=== PATIENT | female | born 1960 | race Caucasian/White ===

== ENCOUNTER 2020-10-19 13:10 | Inpatient (IN) | payer MEDICAID ==
[~2020-10-19] VITALS: Ht 157.5 cm; Wt 59.9 kg
[2020-10-19 15:28] LABS: BASOPHILS % (AUTO) 0.4 % (0-1); EOSINOPHILS # (AUTO) 0.1 X10'3 (0-0.9); EOSINOPHILS % (AUTO) 3.6 % (0-6); LYMPHOCYTES # (AUTO) 0.5 X10'3 (1.1-4.8); LYMPHOCYTES % (AUTO) 13.5 % (21-51); MEAN CORPUSCULAR HEMOGLOBIN 28.8 PG (27.0-31.0); MEAN CORPUSCULAR HGB CONC 33.5 g/dL (33.0-36.5); MEAN PLATELET VOLUME 8.1 FL (7.4-10.4); MONOCYTES # (AUTO) 0.6 X10'3 (0-0.9); MONOCYTES % (AUTO) 17.1 % (2-12); NEUTROPHILS # (AUTO) 2.3 X10'3 (1.8-7.7); NEUTROPHILS % (AUTO) 65.4 % (42-75); PRE OP HEMATOCRIT 36.7 % (35.0-45.0); PRE OP HEMOGLOBIN 12.3 g/dL (12.0-16.0); PRE OP PLATELET COUNT 158 X10'3 (140-440); RED BLOOD COUNT 4.27 X10'6 (4.20-5.60); RED CELL DISTRIBUTION WIDTH 17.2 % (11.5-14.5)
[2020-10-19 15:36] LABS: PRE OP INR 1.1 INR; PRE OP PROTIME 10.9 SECONDS (9.0-12.0)
[2020-10-19 15:37] LABS: ALBUMIN 3.3 G/DL (3.4-5.0); ALBUMIN/GLOBULIN RATIO 0.7 (1.1-1.5); ALKALINE PHOSPHATASE 166 IU/L (46-116); BLOOD UREA NITROGEN 9 MG/DL (7-18); CALCIUM 8.4 MG/DL (8.5-10.1); CHLORIDE 105 MMOL/L (99-107); PRE OP ALT 24 U/L (30-65); PRE OP ANION GAP 8 (8-16); PRE OP AST 29 U/L (10-37); PRE OP BILIRUB, TOTAL 0.4 MG/DL (0.0-1.0); PRE OP GLUCOSE 121 MG/DL (70-104); PRE OP SODIUM 142 MMOL/L (135-145); TOTAL CARBON DIOXIDE 29.4 MMOL/L (24-32); TOTAL PROTEIN 8.1 G/DL (6.4-8.2); eGFR > 90 ML/MIN
[2020-10-19 15:38] LABS: PRE OP POTASSIUM 3.3 MMOL/L (3.4-5.1)
[2020-10-19 15:54] LABS: ANISOCYTOSIS 1+; PLATELET ESTIMATE NORMAL; TOTAL CELLS COUNTED 100
[2020-10-19] MEDS ORDERED: OMEP-50 PO (18:24)
[2020-10-27] VITALS (17 sets, daily range): BP systolic 109–144; BP diastolic 45–75
[2020-10-27] MEDS ORDERED: ringers solution, lacted 1,000 ML IV SCH ×2 (05:00→10:30)
[2020-10-27] MEDS ORDERED: metroNIDAZOLE-Flagyl 500mg/NS 100ML IVPB IV ONE (05:30)
[2020-10-27] MEDS ORDERED: ceFOXitin 2GM-NS 100mL ADDvant 100 ML IV ONE (05:30)
[2020-10-27] MEDS ORDERED: famotidine 20mg tablet PO ONE (05:30)
[2020-10-27] MEDS ORDERED: fentaNYL /PF 50mcg/ml 5ml ampule ONE (09:49)
[2020-10-27] MEDS ORDERED: midazolam 1 mg/ML 2ml injection ONE (09:49)
[2020-10-27] MEDS ORDERED: LIDOcaine 2% (20mg/ml) 5ml vial ONE (09:51)
[2020-10-27] MEDS ORDERED: rocuronium 10mg/ml inj IV ONE (09:51)
[2020-10-27] MEDS ORDERED: propofol inj 20 ML IV ONE (09:51)
[2020-10-27] MEDS ORDERED: LIDOcaine 1% W/epiNEPHrine 1:100,000 20ml vial ONE (09:57)
[2020-10-27] MEDS ORDERED: BUPIVAcaine/PF 2.5 mg/ml (0.25%) 30ml vial ONE (09:57)
[2020-10-27 10:13] LABS: ASPARTATE AMINO TRANSFERASE 32 U/L (10-37); BILIRUBIN,TOTAL 0.5 MG/DL (0.1-1.0); BLOOD UREA NITROGEN 9 MG/DL (7-18); BUN/CREATININE RATIO 13.8 (6.6-38.0); CHLORIDE 103 MMOL/L (99-107); CREATININE 0.65 MG/DL (0.40-0.90); GLUCOSE 201 MG/DL (70-104); POTASSIUM 3.4 MMOL/L (3.5-5.1); SODIUM 140 MMOL/L (135-145); eGFR > 90 ML/MIN
[2020-10-27 10:15] LABS: PARTIAL THROMBOPLASTIN TIME 26 SECONDS (22-32)
[2020-10-27 10:16] LABS: ALANINE AMINOTRANSFERASE 28 U/L (12-78); ALBUMIN 3.2 G/DL (3.4-5.0); ALBUMIN/GLOBULIN RATIO 0.7 (1.1-1.5); ALKALINE PHOSPHATASE 109 IU/L (46-116); ANION GAP 10 (8-16); CALCIUM 8.2 MG/DL (8.5-10.1); TOTAL CARBON DIOXIDE 27.2 MMOL/L (24-32); TOTAL PROTEIN 7.6 G/DL (6.4-8.2)
[2020-10-27 10:20] LABS: BASOPHILS % (AUTO) 0.3 % (0-1); EOSINOPHILS # (AUTO) 0.1 X10'3 (0-0.9); EOSINOPHILS % (AUTO) 3.9 % (0-6); HEMATOCRIT 32.2 % (35.0-45.0); HEMOGLOBIN 10.7 g/dl (12.0-16.0); LYMPHOCYTES # (AUTO) 0.4 X10'3 (1.1-4.8); LYMPHOCYTES % (AUTO) 13.6 % (21-51); MEAN CORPUSCULAR HEMOGLOBIN 28.2 PG (27.0-31.0); MEAN CORPUSCULAR HGB CONC 33.2 g/dL (33.0-36.5); MEAN CORPUSCULAR VOLUME 84.7 FL (78-98); MEAN PLATELET VOLUME 8.1 FL (7.4-10.4); MONOCYTES # (AUTO) 0.5 X10'3 (0-0.9); NEUTROPHILS # (AUTO) 1.7 X10'3 (1.8-7.7); NEUTROPHILS % (AUTO) 63.2 % (42-75); PLATELET COUNT 141 X10'3 (140-440); RED CELL DISTRIBUTION WIDTH 17.2 % (11.5-14.5); WHITE BLOOD COUNT 2.7 X10'3 (4.5-11.0)
[2020-10-27] MEDS ORDERED: meperidine/PF 25mg/ml syringe IV PRN ×2 (10:30)
[2020-10-27] MEDS ORDERED: morphine 4 MG/ML inj SYRINge IV PRN (10:30)
[2020-10-27] MEDS ORDERED: morphine 2 MG/ML inj. syringe IV PRN ×3 (10:30→18:55)
[2020-10-27] MEDS ORDERED: ondansetron/PF 4mg/2ml inj IV PRN ×2 (10:30→18:55)
[2020-10-27] MEDS ORDERED: proCHLORperazine 10 MG/2 ml inj IV PRN (10:30)
[2020-10-27] MEDS ORDERED: sevoflurane 250ml liquid IH ONE (10:44)
[2020-10-27] MEDS ORDERED: acetaminophen 1,000mg/100ml IV 100 ML IV ONE (12:21)
[2020-10-27] MEDS ORDERED: neostigmine methylsulfate 1 MG/ML 10ml vial ONE (12:21)
[2020-10-27] MEDS ORDERED: ondansetron/PF 4mg/2ml inj ONE (12:21)
[2020-10-27] MEDS ORDERED: glycopyrrolate 0.2mg/ml inj ONE (12:21)
[2020-10-27] MEDS ORDERED: ePHEDrine 50MG/ML INJ. ONE (12:21)
--- NOTE | 2020-10-27 12:53 | NUR ---
Received from OR via BED, accompanied by Anesthesiologist DR KRAUSE and report given by Anesthesiologist. PT DROWSY, DENIES PAIN, ABDOMEN W/[place] COURTNEY RESTREPO. Addendum: 10/27/20 at 1406 by Francisca Aldridge RN Amended: Links added.
[2020-10-27] MEDS ORDERED: naloxone 0.4 mg/ml inj IV PRN (13:25)
[2020-10-27] MEDS ORDERED: Potassium Cl inj 40 MEQ in normal saline 250ml IV soln 250 ML IV ONE (13:25)
[2020-10-27] MEDS ORDERED: HYDROcodone/acetaminophen 5mg/325mg tablet PO PRN ×2 (13:25→18:55)
[2020-10-27] MEDS ORDERED: CADD PCA waste documentation MC PRN (13:25)
[2020-10-27] MEDS ORDERED: potassium CL 20mEq in D5-1/2NS 1,000 ML IV SCH (13:25)
[2020-10-27] MEDS ORDERED: Potassium Cl inj 40 MEQ in sodium chloride 0.45% 500ml 500 ML IV ONE (13:50)
[2020-10-27] MEDS: meperidine/PF 25mg/ml syringe IV PRN ×2 (14:08→14:16)
[2020-10-27] MEDS: HYDROmorph./NS 0.2 mg/ml CADD 100 ML IV SCH ×5 (14:38→23:00)
--- NOTE | 2020-10-27 15:13 | NUR ---
Report called to receiving nurse. Transferred via BED, 1 BAG OF PERSONAL Belongings [facility], CALL LIGHT GIVEN, SIDE RAILS UP X 2, INFORMED MANAGER CANCER OF PTS ARRIVAL. Special Issues communicated to receiving nurse. YES. Addendum: 10/27/20 at 1531 by Francisca Aldridge RN Amended: Links added.
--- NOTE | 2020-10-27 15:29 | NUR ---
pt on floor from recovery
[2020-10-27] MEDS: ondansetron/PF 4mg/2ml inj IV PRN (17:21)
--- NOTE | 2020-10-27 18:15 | NUR ---
Received report from GANESH Jerome
[2020-10-27] MEDS ORDERED: acetaminophen 325mg tablet PO PRN ×2 (18:55)
[2020-10-27] MEDS ORDERED: HYDROcodone/acetaminophen 10/325mg tab PO PRN (18:55)
[2020-10-27] MEDS ORDERED: magnesium hydroxide 30ml (MOM) UD suspension PO PRN (18:55)
[2020-10-27] MEDS ORDERED: mag hydrox/Alum hydrox/simeth 30ml oral suspension PO PRN (18:55)
--- NOTE | 2020-10-27 19:01 | NUR ---
Patient in room [facility]. I have received report from Justus ANDERSEN and had the opportunity to ask questions and assume patient care.
[2020-10-27] MEDS ORDERED: ceFOXitin 1 GM/D5W 50mL IVPB 50 ML IV SCH (20:00)
[2020-10-27] MEDS ORDERED: ceFOXitin inj 1 MG in normal saline 100ml IV soln 100 ML IV SCH (20:00)
[2020-10-27] MEDS ORDERED: heparin, porcine 5000 units/ml vial SQ SCH (20:00)
[2020-10-27] MEDS ORDERED: temazepam 15mg capsule PO PRN (21:00)
[2020-10-27] MEDS: heparin, porcine 5000 units/ml vial SQ SCH (21:46)
[2020-10-27] MEDS: ciprofloxacin lact 400MG/200ML 200 ML IV SCH (21:48)
[2020-10-27] MEDS: normal saline 1000ml 1,000 ML IV SCH (23:10)
[2020-10-28 00:50] VITALS: BP 131/61
[2020-10-28] MEDS: HYDROmorph./NS 0.2 mg/ml CADD 100 ML IV SCH ×12 (01:00→23:00)
[2020-10-28] MEDS: metroNIDAZOLE-Flagyl 500mg/NS 100 ML IV SCH ×3 (01:07→16:37)
[2020-10-28 01:46] VITALS: BP 134/61
--- NOTE | 2020-10-28 04:38 | NUR ---
Mckeon removed, 10ml was removed from the baboon prior to cath removal. Patient handled well.
[2020-10-28 04:41] VITALS: BP 126/55
[2020-10-28] MEDS: normal saline 1000ml 1,000 ML IV SCH ×3 (04:55→21:00)
--- NOTE | 2020-10-28 06:56 | NUR ---
Problems reprioritized. Patient report given, questions answered & plan of care reviewed with Angela ANDERSEN.
--- NOTE | 2020-10-28 06:56 | NUR ---
I agree with the GANESH Reyeselementary instructional coach, assesments, and report. Report given to GANESH Miller
--- NOTE | 2020-10-28 06:58 | NUR ---
I agree with the GANESH Reyesbarge captain, assesments, and report. Report given to GANESH Miller
[2020-10-28 07:37] LABS: BASOPHILS % (AUTO) 0.1 % (0-1); EOSINOPHILS % (AUTO) 0.1 % (0-6); HEMATOCRIT 30.6 % (35.0-45.0); HEMOGLOBIN 10.2 g/dl (12.0-16.0); LYMPHOCYTES # (AUTO) 0.3 X10'3 (1.1-4.8); LYMPHOCYTES % (AUTO) 6.3 % (21-51); MEAN CORPUSCULAR HEMOGLOBIN 28.4 PG (27.0-31.0); MEAN CORPUSCULAR HGB CONC 33.3 g/dL (33.0-36.5); MEAN CORPUSCULAR VOLUME 85.4 FL (78-98); MEAN PLATELET VOLUME 8.8 FL (7.4-10.4); MONOCYTES # (AUTO) 0.5 X10'3 (0-0.9); MONOCYTES % (AUTO) 11.7 % (2-12); NEUTROPHILS # (AUTO) 3.7 X10'3 (1.8-7.7); NEUTROPHILS % (AUTO) 81.8 % (42-75); PLATELET COUNT 126 X10'3 (140-440); RED BLOOD COUNT 3.58 X10'6 (4.20-5.60); RED CELL DISTRIBUTION WIDTH 16.9 % (11.5-14.5); WHITE BLOOD COUNT 4.6 X10'3 (4.5-11.0)
[2020-10-28 07:52] LABS: ALBUMIN 2.9 G/DL (3.4-5.0); ANION GAP 9 (8-16); BLOOD UREA NITROGEN 5 MG/DL (7-18); BUN/CREATININE RATIO 9.6 (6.6-38.0); CALCIUM 8.1 MG/DL (8.5-10.1); CHLORIDE 107 MMOL/L (99-107); CREATININE 0.52 MG/DL (0.40-0.90); GLUCOSE 111 MG/DL (70-104); POTASSIUM 3.5 MMOL/L (3.5-5.1); SODIUM 144 MMOL/L (135-145); TOTAL CARBON DIOXIDE 28.4 MMOL/L (24-32); eGFR > 90 ML/MIN
[2020-10-28] MEDS ORDERED: ceFOXitin inj 1,000 MG in normal saline 100ml IV soln 100 ML IV SCH (08:00)
[2020-10-28] MEDS: pantoprazole 40mg Tablet.DR PO SCH (08:37)
[2020-10-28] MEDS: heparin, porcine 5000 units/ml vial SQ SCH ×2 (08:37→21:01)
[2020-10-28] MEDS: ciprofloxacin lact 400MG/200ML 200 ML IV SCH ×2 (09:31→20:59)
--- NOTE | 2020-10-28 10:08 | NUR ---
Called Demarco. States he clarified CL diet for pt. with day RN yesterday, and then gave night RN a full liquid diet order. Neither order had been entered. Full liquid diet entered and food given to upset pt.
[2020-10-28 11:30] VITALS: BP 132/57
[2020-10-28] MEDS: ondansetron/PF 4mg/2ml inj IV PRN (12:16)
[2020-10-28 18:00] VITALS: BP 124/57
--- NOTE | 2020-10-28 18:31 | NUR ---
Problems reprioritized. Patient report given, questions answered & plan of care reviewed with Tiburcio ANDERSEN and Kimmie BUSTOSN.
[2020-10-28 19:00] VITALS: BP 124/57
--- NOTE | 2020-10-28 19:10 | NUR ---
Patient in room [facility]. I have received report from Angela ANDERSEN and had the opportunity to ask questions and assume patient care.
--- NOTE | 2020-10-28 19:28 | NUR ---
I have received report from GANESH Miller and had the opportunity to ask questions and assume patient care.
[2020-10-29] MEDS: metroNIDAZOLE-Flagyl 500mg/NS 100 ML IV SCH ×2 (00:02→08:18)
[2020-10-29 00:10] VITALS: BP 127/56
[2020-10-29] MEDS: HYDROmorph./NS 0.2 mg/ml CADD 100 ML IV SCH ×7 (01:00→13:00)
[2020-10-29] MEDS: normal saline 1000ml 1,000 ML IV SCH ×3 (05:00→19:59)
--- NOTE | 2020-10-29 06:33 | NUR ---
I agree with GANESH Reyesimaging system administrator, assessments, and Report given to Chandler RN
--- NOTE | 2020-10-29 06:34 | NUR ---
Problems reprioritized. Patient report given, questions answered & plan of care reviewed with Chandler RN.
--- NOTE | 2020-10-29 06:39 | NUR ---
Patient in room [facility]. I have received report from Tiburcio/Kimmie ANDERSEN and had the opportunity to ask questions and assume patient care.
[2020-10-29 07:01] LABS: ALBUMIN 2.9 G/DL (3.4-5.0); ANION GAP 8 (8-16); BLOOD UREA NITROGEN 3 MG/DL (7-18); BUN/CREATININE RATIO 5.4 (6.6-38.0); CALCIUM 7.9 MG/DL (8.5-10.1); CHLORIDE 105 MMOL/L (99-107); CREATININE 0.56 MG/DL (0.40-0.90); GLUCOSE 105 MG/DL (70-104); SODIUM 142 MMOL/L (135-145); eGFR > 90 ML/MIN
[2020-10-29 07:03] LABS: BASOPHILS % (AUTO) 0.1 % (0-1); EOSINOPHILS % (AUTO) 0.5 % (0-6); HEMATOCRIT 29.2 % (35.0-45.0); HEMOGLOBIN 9.7 g/dl (12.0-16.0); LYMPHOCYTES # (AUTO) 0.4 X10'3 (1.1-4.8); LYMPHOCYTES % (AUTO) 9.9 % (21-51); MEAN CORPUSCULAR HEMOGLOBIN 28.3 PG (27.0-31.0); MEAN CORPUSCULAR HGB CONC 33.3 g/dL (33.0-36.5); MEAN CORPUSCULAR VOLUME 84.9 FL (78-98); MEAN PLATELET VOLUME 8.8 FL (7.4-10.4); MONOCYTES # (AUTO) 0.6 X10'3 (0-0.9); MONOCYTES % (AUTO) 13.8 % (2-12); NEUTROPHILS # (AUTO) 3.3 X10'3 (1.8-7.7); NEUTROPHILS % (AUTO) 75.7 % (42-75); PLATELET COUNT 128 X10'3 (140-440); RED BLOOD COUNT 3.44 X10'6 (4.20-5.60); RED CELL DISTRIBUTION WIDTH 17.1 % (11.5-14.5); WHITE BLOOD COUNT 4.4 X10'3 (4.5-11.0)
[2020-10-29 07:04] LABS: POTASSIUM 2.8 MMOL/L (3.5-5.1)
--- NOTE | 2020-10-29 07:37 | NUR ---
PAGER ID: [phone] MESSAGE: Chandler Surg 347a [place] patient has a 2.8 K level this morning. thanks
[2020-10-29] MEDS ORDERED: magnesium Cl slow-release 64mg tablet PO PRN (07:45)
[2020-10-29] MEDS ORDERED: potassium Cl 40MEQ/1/2NS 520ml 520 ML IV PRN (07:45)
[2020-10-29] MEDS ORDERED: magnesium 4gm in 100ml NS 100 ML IV PRN (07:45)
[2020-10-29] MEDS: K and/or MAG REPLACEMENT MC SCH ×2 (08:00→19:56)
[2020-10-29] MEDS: pantoprazole 40mg Tablet.DR PO SCH (08:17)
[2020-10-29] MEDS: heparin, porcine 5000 units/ml vial SQ SCH ×2 (08:18→20:01)
[2020-10-29] MEDS: potassium Cl 20 mEq SR tablet PO PRN ×3 (08:31→20:00)
[2020-10-29] MEDS: ciprofloxacin lact 400MG/200ML 200 ML IV SCH ×2 (09:41→19:59)
[2020-10-29 10:05] LABS: MAGNESIUM 1.8 MG/DL (1.5-2.4)
[2020-10-29 10:14] VITALS: BP 120/62
[2020-10-29 13:21] VITALS: BP 121/51
--- NOTE | 2020-10-29 18:08 | NUR ---
Problems reprioritized. Patient report given, questions answered & plan of care reviewed with Girma ANDERSEN.
[2020-10-29 18:50] VITALS: BP 117/54
[2020-10-30] VITALS: BP 124/58
[2020-10-30] MEDS: normal saline 1000ml 1,000 ML IV SCH (05:01)
--- NOTE | 2020-10-30 06:21 | NUR ---
Problems reprioritized. Patient report given, questions answered & plan of care reviewed with DAYSI. Addendum: 10/30/20 at 06 by Erich Wetzel RN Amended: Links added.
[2020-10-30 06:38] LABS: BASOPHILS % (AUTO) 0.3 % (0-1); EOSINOPHILS # (AUTO) 0.1 X10'3 (0-0.9); EOSINOPHILS % (AUTO) 2.1 % (0-6); HEMATOCRIT 29.3 % (35.0-45.0); HEMOGLOBIN 9.8 g/dl (12.0-16.0); LYMPHOCYTES # (AUTO) 0.5 X10'3 (1.1-4.8); LYMPHOCYTES % (AUTO) 15.1 % (21-51); MEAN CORPUSCULAR HEMOGLOBIN 28.3 PG (27.0-31.0); MEAN CORPUSCULAR HGB CONC 33.4 g/dL (33.0-36.5); MEAN CORPUSCULAR VOLUME 84.7 FL (78-98); MEAN PLATELET VOLUME 8.9 FL (7.4-10.4); MONOCYTES # (AUTO) 0.5 X10'3 (0-0.9); MONOCYTES % (AUTO) 14.4 % (2-12); NEUTROPHILS # (AUTO) 2.3 X10'3 (1.8-7.7); NEUTROPHILS % (AUTO) 68.1 % (42-75); PLATELET COUNT 132 X10'3 (140-440); RED BLOOD COUNT 3.46 X10'6 (4.20-5.60); RED CELL DISTRIBUTION WIDTH 17.2 % (11.5-14.5); WHITE BLOOD COUNT 3.3 X10'3 (4.5-11.0)
[2020-10-30 06:45] LABS: ALBUMIN 2.8 G/DL (3.4-5.0); ANION GAP 6 (8-16); BLOOD UREA NITROGEN 2 MG/DL (7-18); BUN/CREATININE RATIO 4.2 (6.6-38.0); CALCIUM 8.1 MG/DL (8.5-10.1); CHLORIDE 107 MMOL/L (99-107); CREATININE 0.48 MG/DL (0.40-0.90); GLUCOSE 105 MG/DL (70-104); MAGNESIUM 1.7 MG/DL (1.5-2.4); POTASSIUM 3.3 MMOL/L (3.5-5.1); SODIUM 141 MMOL/L (135-145); TOTAL CARBON DIOXIDE 27.8 MMOL/L (24-32); eGFR > 90 ML/MIN
[2020-10-30] MEDS ORDERED: magnesium hydroxide 30ml (MOM) UD suspension PO ONE (07:25)
[2020-10-30 07:30] VITALS: BP 118/52
[2020-10-30] MEDS: ciprofloxacin lact 400MG/200ML 200 ML IV SCH (07:32)
[2020-10-30] MEDS: pantoprazole 40mg Tablet.DR PO SCH (07:33)
[2020-10-30] MEDS: heparin, porcine 5000 units/ml vial SQ SCH (07:36)
[2020-10-30] MEDS ORDERED: docusate sod 100mg capsule PO SCH (08:00)
[2020-10-30] MEDS: K and/or MAG REPLACEMENT MC SCH (08:00)
[2020-10-30] MEDS ORDERED: lactose-reduced food (Ensure High Protein) 237ml bottle PO SCH (08:00)
[2020-10-30] MEDS: potassium Cl 20 mEq SR tablet PO PRN ×2 (09:06→14:12)
[2020-10-30] MEDS ORDERED: CIPR-202 PO (13:21)
[2020-10-30] MEDS ORDERED: POTA20TA10 PO (13:21)
[2020-10-30] MEDS ORDERED: HYDR-3964 PO (13:21)
[2020-10-30 14:25] LABS: ISTAT NA 140 mmol/L (135-145)
[2020-10-30 14:33] LABS: ISTAT ANION GAP 9 (8-12); ISTAT BUN 6 mg/dL (7-18); ISTAT CL 103 mmol/L (99-107); ISTAT K 2.8 mmol/L (3.5-5.1); ISTAT TOTAL CO2 28 mmol/L (24-32)
[2020-10-30 14:34] LABS: ISTAT CREATININE 0.5 mg/dL (0.6-1.1); ISTAT GLUCOSE 124 mg/dL (70-105); ISTAT HGB 10.5 g/dl (12.0-16.0); ISTAT Hct 31 %PCV (35-48); ISTAT IONIZED CALCIUM 1.12 mmol/L (1.03-1.32); ISTAT eGFR > 90 ML/MIN
--- NOTE | 2020-10-30 14:40 | NUR ---
Discharge instructions given to patient's son as patient cannot comprehend [place]in[place]. Patient's son verbalized understanding of all instructions made. Peripheral IV catheter removed, tip intact. Instructed patient and the son to ensure they have all belongings with them before leaving. New prescription was already e-sent to the pharmacy. [place] and [place]inamese discharge paperworks were provided to the patient upon discharge.
[2020-10-30] MEDS ORDERED: psyllium seed 3.4 gm packet PO SCH (21:00)
== END 2020-10-30 15:00 | disposition home or self-care (01) | DRG 230 ==
LOC: PRE-OP 13:10 → PAS IN 10-27 09:03 → UNDOADMIN 10-27 09:03 → EDSTATUS 10-27 09:45 → PAS IN 10-27 13:23 → SUR 3N 10-27 15:14
PROVIDERS: ADMIT Colon & Rectal Surgery; ATTEND Colon & Rectal Surgery
PROC: 0DBB0ZZ Excision of Ileum, Open Approach (ICD-10-PCS; principal; 2020-10-27 10:44)
DX: C20 Malignant neoplasm of rectum (principal); D61.818 Other pancytopenia; D69.6 Thrombocytopenia, unspecified; K94.11 Enterostomy hemorrhage; E44.1 Mild protein-calorie malnutrition; K66.0 Peritoneal adhesions (postprocedural) (postinfection); K21.9 Gastro-esophageal reflux disease without esophagitis; E87.6 Hypokalemia; D64.9 Anemia, unspecified; Z68.24 Body mass index [BMI] 24.0-24.9, adult
CPT/HCPCS: 36415; 80047; 80048; 80053; 82948; 83605; 83735; 85007; 85025; 85610; 85730; 86885; 86900; 86901; 87040; 87081; 93005; 97161; 97530; A4215; A4618; A6449; A7000; C1758; G0378; J0131; J0694; J0744; J1170; J1644; J2001; J2175; J2250; J2405; J2704; J2710; J3010; J3480; J3490; J7030; J7120